=== PATIENT | male | born 1965 | race Caucasian/White ===

== ENCOUNTER 2019-09-01 22:20 | Inpatient (IN) | payer MEDICAID ==
[~2019-09-01] VITALS: Ht 182.9 cm; Wt 123.4 kg
[2019-09-01 23:33] LABS: Basophils # (auto) 0 10 ^3/uL (0-0.2); Basophils % (auto) 0.2 % (0.0-2.0); Eosinophils # (auto) 0 10 ^3/uL (0-0.8); Hematocrit 57.5 % (41.0-53.0); Hemoglobin 18.2 g/dL (13.5-17.5); Lymphocytes # (auto) 1.1 10 ^3/uL (0.4-5.4); Lymphocytes % (auto) 5.8 % (10.0-50.0); Mean Corpuscular Hemoglobin 30.8 pg (28.0-32.0); Mean Corpuscular Hgb Conc. 31.7 g/dL (32.0-36.0); Mean Corpuscular Volume 97.1 fL (80.0-100.0); Monocytes # (auto) 1.1 10 ^3/uL (0-1.3); Monocytes % (auto) 6.2 % (0.0-12.0); Neutrophils # (auto) 15.8 10 ^3/uL (1.6-8.6); Neutrophils % (auto) 87.8 % (37.0-80.0); Platelet Count (auto) 311 10^3/uL (140-450); Red Blood Cells 5.92 10^6/uL (4.5-5.90)
[2019-09-01 23:51] LABS: Blood Urea Nitrogen 23 mg/dL (7-18); Calcium 8.2 mg/dL (8.5-10.1); Chloride 99 mmol/L (98-107); Glucose 252 mg/dL (74-106); Potassium 4.5 mmol/L (3.5-5.1); Sodium 125 mmol/L (136-145)
[2019-09-01 23:53] LABS: Alanine Aminotransferase 56 U/L (16-61); Aspartate Aminotransferase 24 U/L (15-37); GFR African American 70 mL/min; GFR Non-African American 58 mL/min
[2019-09-01 23:54] LABS: BUN/Creatinine Ratio 16.9
[2019-09-01 23:55] LABS: Alkaline Phosphatase 120 U/L (45-117); Bilirubin, Total 0.7 mg/dL (0.2-1.0)
[2019-09-02 00:02] LABS: Anion Gap 22 (5-15); Carbon Dioxide 4 mmol/L (21-32)
[2019-09-02] MEDS ORDERED: SODIUM BICARBONATE 8.4 % INJ 50ML VIAL IV ONE ×3 (02:15→07:00)
[2019-09-02] MEDS ORDERED: SODIUM CHLORIDE 0.9% 2,000 ML IV ONE (02:15)
[2019-09-02 02:55] LABS: Urine Amorphous Crystal FEW /hpf (None Seen); Urine Bacteria FEW /hpf (None Seen); Urine Blood 2+ /uL (Negative); Urine Hyaline Cast MANY /lpf (0 - 2); Urine Specific Gravity 1.021 (1.001-1.035); Urine WBC <1 /hpf (0 - 3)
[2019-09-02] MEDS ORDERED: SODIUM BICARBONATE 50ML VIAL 50 ML in SOD CHL 0.45% 1,000 ML IV ONE (03:15)
[2019-09-02] MEDS ORDERED: SODIUM BICARBONATE 8.4% INJ 50ML SYRINGE ONE (03:37)
[2019-09-02 06:50] LABS: Albumin 3.4 g/dL (3.4-5.0); Calcium 7.3 mg/dL (8.5-10.1)
[2019-09-02 06:53] LABS: BUN/Creatinine Ratio 20.6; Bilirubin, Total 0.7 mg/dL (0.2-1.0); Total Protein 7.3 g/dL (6.4-8.2)
[2019-09-02] MEDS ORDERED: NITROGLYCERIN 0.4 MG SL TAB SL PRN (07:00)
[2019-09-02] MEDS ORDERED: SODIUM BICARBONATE 50ML VIAL 50 ML in SOD CHL 0.45% 1,000 ML IV SCH (07:00)
[2019-09-02] MEDS ORDERED: DEXTROSE (50%) 50ML SYRG IV PRN (07:00)
[2019-09-02] MEDS ORDERED: MORPHINE SULF INJ 2 MG/ML SYRINGE 1ML IV PRN (07:00)
[2019-09-02] MEDS ORDERED: SODIUM CHLORIDE 0.9% 500 ML IV ONE (07:00)
[2019-09-02] MEDS: ACCU-CHEK COMFORT CURVE STRIP VI SCH ×4 (08:00→20:00)
--- NOTE | 2019-09-02 08:00 | NUR ---
Admit to [facility] admitted to [facility] via merissa on reference and instruction librarian, and on room air after receiving SBAR from BAUTISTA Pink. Patient transferred to bed, connected to unit monitoring, and weighed by bed scale. Patient oriented to MOSHE ATKINS, primary RN, unit, room, bed, and unit policies regarding patient care and visiting hours. Patient with #18 Lt EJ with NaBicarb infusing at 50ml/hr. Bed in lowest position, rails x2 up and call light within reach. All questions and concerns addressed, patient verbalized understanding.
[2019-09-02 08:11] LABS: Magnesium 2.3 mg/dL (1.6-2.6); Phosphorus 2.1 mg/dL (2.5-4.90)
[2019-09-02] MEDS: InsuLIN REG 1unit/0.01ml Soln (100units/ml) SC SCH ×4 (08:30→20:00)
[2019-09-02 09:00] VITALS: BP 118/36
[2019-09-02] MEDS ORDERED: SODIUM PHOSPHATES 24 MEQ in SODIUM CHL 0.9% 100 ML IV ONE ×3 (10:45→17:30)
--- NOTE | 2019-09-02 11:40 | NUR ---
Dr Goldstein at bedside to see patient. Orders received.
[2019-09-02 11:43] LABS: Cholesterol 140 mg/dL (< 200); HDL Cholesterol 30 mg/dL (40-59); LDL Cholesterol 83 mg/dL (< 100); Triglycerides 158 mg/dL (< 150)
[2019-09-02 11:45] VITALS: BP 110/39
[2019-09-02] MEDS: SODIUM BICARBONATE 50ML VIAL 50 ML in SOD CHL 0.45% 1,000 ML IV SCH ×3 (11:47→23:05)
[2019-09-02 13:50] LABS: BUN/Creatinine Ratio 20.5; Potassium 3.6 mmol/L (3.5-5.1)
--- NOTE | 2019-09-02 14:30 | NUR ---
Dr Conde at bedside to see patient.
[2019-09-02 15:45] VITALS: BP 98/44
--- NOTE | 2019-09-02 16:00 | NUR ---
Midline Placement: Patient educated on need for midline placement. All risks and benefits explained and all questions and concerns addresses prior to procedure. 18g/10cm midline inserted via R BASILIC vein using Ultrasound. Sterile technique utilized. Blood return obtained from lumen and flushed easily with NS using proper technique. Midline secured with saline lock; biodisc and occlusive dressing applied. Primary RN notified. Midline lot # [id number].
--- NOTE | 2019-09-02 16:18 | NUR ---
PICC RN at bedside. #18 midline placed to right upper arm.
--- NOTE | 2019-09-02 17:00 | NUR ---
Found patient lying in bed with soiled jeans that smelled like urine. Instructed patient to remove soiled clothes and patient refused stating he just spilled water on himself. With assistance from Sushant, CCT patient changed gown and partial linen change. IV from Lt EJ discontinued after dressing found off and line hanging loose.
[2019-09-02] MEDS ORDERED: ASPI-231 PO (17:33)
[2019-09-02] MEDS ORDERED: LISI-275 PO (17:33)
[2019-09-02] MEDS ORDERED: METF-370 PO (17:33)
[2019-09-02] MEDS ORDERED: ATO40T PO (17:33)
--- NOTE | 2019-09-02 19:18 | NUR ---
CLOSING SHIFT NOTE: Patient resting in bed, no complaints of pain. Patient remains A&Ox4. Patient with right upper midline running IVF of 0.45NS + Bicarb at 150ml/hr. Patient to continue with accu checks q4hr. Report given to Aneta RAMIREZ RN.
[2019-09-02 20:00] VITALS: BP 130/58
--- NOTE | 2019-09-02 23:13 | NUR ---
Pt states pain to his lower back and states feels like a truck ran him over. States he takes 2 Codeine when this happens at home but only in a "rare blue almodovar." Pagejackelyn CHEATHAM.
[2019-09-02] MEDS ORDERED: ACET30TA15 PO (23:21)
--- NOTE | 2019-09-02 23:50 | NUR ---
repaged for orders for back pain.
--- NOTE | 2019-09-02 23:52 | NUR ---
One time dose of 2 Codeine and Restoril ordered. Will continue to monitor.
[2019-09-03] VITALS: BP 106/45
[2019-09-03] MEDS ORDERED: TEMAZEPAM 15 MG CAP PO PRN
[2019-09-03] MEDS ORDERED: ACETAMINOPHEN/CODEINE#3 (300/30mg) TAB PO ONE
[2019-09-03] MEDS: ACCU-CHEK COMFORT CURVE STRIP VI SCH ×4 (00:09→11:46)
[2019-09-03] MEDS: ONDANSETRON HCL 4 MG/2 ML VIAL IV PRN ×3 (00:10→05:40)
[2019-09-03 01:24] LABS: BUN/Creatinine Ratio 18.1; Calcium 6.7 mg/dL (8.5-10.1)
[2019-09-03 01:26] LABS: Potassium 2.8 mmol/L (3.5-5.1)
--- NOTE | 2019-09-03 01:35 | NUR ---
Reported to Dr. Saab K+ 2.8, CO2 9 which has improved from 6. Order K+ 40meq IV times 1 and redraw labs in AM. Will continue to monitor.
[2019-09-03 04:00] VITALS: BP 124/59
[2019-09-03] MEDS: InsuLIN REG 1unit/0.01ml Soln (100units/ml) SC SCH ×3 (04:00→09:00)
[2019-09-03] MEDS: POTASSIUM CHL 20MEQ/100ML 100 ML IV SCH ×2 (04:17→05:39)
[2019-09-03] MEDS: SODIUM BICARBONATE 50ML VIAL 50 ML in SOD CHL 0.45% 1,000 ML IV SCH (05:39)
[2019-09-03 06:27] LABS: Alcohol, Urine < 3.0 mg/dL (0-5); Amphetamine Screen, Urine NEGATIVE (NEGATIVE); Barbiturate Scree,Urine NEGATIVE (NEGATIVE); Benzodiazephine Screen, Urine NEGATIVE (NEGATIVE); Cannabinoid Screen, Urine NEGATIVE (NEGATIVE); Cocaine Screen, Urine NEGATIVE (NEGATIVE); Opiate Scree,Urine POSITIVE (NEGATIVE); Phencyclidine Screen, Urine NEGATIVE (NEGATIVE)
[2019-09-03 06:29] LABS: Creatinine, Urine 38 mg/dL (30.0-125.0); Sodium Urine 32 mmol/L (40-220)
--- NOTE | 2019-09-03 07:58 | NUR ---
Pt remains stable this shift. States abd ache this morning, may be due to Krider infusing. Pt has already have Zofran. Endorsed lab draws to AM shift due to Krider still infusing. Report given to Aneta Spencer RN, care endorsed.
[2019-09-03 08:00] VITALS: BP 107/55
[2019-09-03 09:43] LABS: Basophils # (auto) 0 10 ^3/uL (0-0.2); Basophils % (auto) 0.6 % (0.0-2.0); Eosinophils # (auto) 0 10 ^3/uL (0-0.8); Eosinophils % (auto) 0.2 % (0.0-7.0); Hematocrit 37.5 % (41.0-53.0); Hemoglobin 12.9 g/dL (13.5-17.5); Lymphocytes % (auto) 12.3 % (10.0-50.0); Mean Corpuscular Hemoglobin 31.6 pg (28.0-32.0); Mean Corpuscular Hgb Conc. 34.4 g/dL (32.0-36.0); Mean Corpuscular Volume 91.9 fL (80.0-100.0); Monocytes # (auto) 0.8 10 ^3/uL (0-1.3); Monocytes % (auto) 10.8 % (0.0-12.0); Neutrophils # (auto) 5.9 10 ^3/uL (1.6-8.6); Neutrophils % (auto) 76.1 % (37.0-80.0); Platelet Count (auto) 152 10^3/uL (140-450); Red Blood Cells 4.09 10^6/uL (4.5-5.90); Red Cell Distribution Width 13.6 % (11.8-14.3); White Blood Cell 7.8 10^3/uL (4.4-10.8)
[2019-09-03 09:56] LABS: Albumin 2.5 g/dL (3.4-5.0); Calcium 7.5 mg/dL (8.5-10.1); Potassium 3.2 mmol/L (3.5-5.1)
[2019-09-03 09:59] LABS: BUN/Creatinine Ratio 14.3; Bilirubin, Direct 0.3 mg/dL (0-0.2); Bilirubin, Total 0.7 mg/dL (0.2-1.0); Total Protein 5.3 g/dL (6.4-8.2)
[2019-09-03 12:00] VITALS: BP 100/52
[2019-09-03] MEDS ORDERED: InsuLIN R (HUMAN) 100 UNITS in SODIUM CHL 0.9% 99 ML IV SCH (12:35)
--- NOTE | 2019-09-03 12:40 | NUR ---
DR MAHAN AT BEDSIDE DISCUSSED PLAN OF CARE WITH PATIENT NEW ORDERS RECEIVED
[2019-09-03] MEDS ORDERED: D5W/SOD CHL 0.45%/KCL 40MEQ 1,000 ML IV SCH (12:45)
[2019-09-03] MEDS ORDERED: LACTATED RINGER'S 2,000 ML IV ONE (12:45)
--- NOTE | 2019-09-03 13:05 | NUR ---
PAGED DR SMITH- PATIENT WANTS TO GO AMA AWAITING RETURN CALL
--- NOTE | 2019-09-03 13:23 | NUR ---
PAGED DR SMITH 2ND TIME- PATIENT INSISTING ON LEAVING AMA NOW PATIENT VERBALIZED UNDERSTANDING RISKS HE IS TAKING LEAVING AGAINST MEDICAL ADVICE, AT COULD OCCUR AND PATIENT STILL VERBALIZES HE WISHES TO LEAVE
[2019-09-03] MEDS ORDERED: ACCU-CHEK COMFORT CURVE STRIP VI SCH (13:30)
--- NOTE | 2019-09-03 13:34 | NUR ---
IV removal- PATIENT GOING AMA IV DC'd with clean sterile technique, catheter fully intact. Pressure dressing applied to site. Patient tolerated well.
--- NOTE | 2019-09-03 13:52 | NUR ---
PATIENT LEFT UNIT AMA.
[2019-09-03] MEDS ORDERED: ENOXAPARIN SOD 100 MG/1 ML SYRINGE SC SCH (22:00)
[2019-09-04] MEDS ORDERED: cefTRIAXone 1GM/50ML D5W 50 ML IV SCH (09:00)
[2019-09-04] MEDS ORDERED: PANTOPRAZOLE 40 MG/10 ML VIAL INJ IV SCH (10:00)
--- NOTE | 2019-09-05 08:26 | NUR ---
Agricultural Equipment Test Engineer weekend Did not received a page from nurse regarding social service consult for patient regarding patient is unable to get supplies for his sugar level.
== END 2019-09-03 13:30 | disposition left against medical advice (07) | DRG 420 ==
LOC: EDBD 22:20 → ER 22:27 → OVERFLOW 22:28 → DOU IN ICU 09-02 07:59
PROVIDERS: ADMIT Nurse Practitioner; ATTEND Internal Medicine
DX: E11.10 Type 2 diabetes mellitus with ketoacidosis without coma (principal); N17.0 Acute kidney failure with tubular necrosis; G93.41 Metabolic encephalopathy; E44.0 Moderate protein-calorie malnutrition; E87.1 Hypo-osmolality and hyponatremia; E11.21 Type 2 diabetes mellitus with diabetic nephropathy; E87.6 Hypokalemia; F10.10 Alcohol abuse, uncomplicated; E83.39 Other disorders of phosphorus metabolism; F11.10 Opioid abuse, uncomplicated; I10 Essential (primary) hypertension; N39.0 Urinary tract infection, site not specified; Z53.29 Procedure and treatment not carried out because of patient's decision for other reasons; F17.200 Nicotine dependence, unspecified, uncomplicated; D72.829 Elevated white blood cell count, unspecified; Z71.6 Tobacco abuse counseling; Z91.19 Patient's noncompliance with other medical treatment and regimen; Z80.0 Family history of malignant neoplasm of digestive organs; Z68.36 Body mass index [BMI] 36.0-36.9, adult
CPT/HCPCS: 36415; 36600; 70450; 71045; 72125; 80048; 80053; 80061; 80076; 80307; 81001; 82010; 82570; 82805; 82962; 83036; 83735; 83880; 83930; 84100; 84300; 84443; 84484; 85025; 93005; 96361; 96374; 96376; 99291; G0378; J1815; J2405; J3480

== ENCOUNTER → 2019-09-03 | Emergency (ER) | payer MEDICAID ==
[~2019-09-03] VITALS: Ht 182.9 cm; Wt 99.8 kg
[~2019-09-03] MED LIST: ACET30TA15 PO; ACETAMINOPHEN 325 MG TAB PO ONE; ASPI-231 PO; ATO40T PO; LISI-275 PO; METF-370 PO; POTASSIUM CHL 20 Meq TABLET PO ONE
[2019-09-03 18:45] LABS: Basophils # (auto) 0 10 ^3/uL (0-0.2); Basophils % (auto) 0.5 % (0.0-2.0); Eosinophils # (auto) 0 10 ^3/uL (0-0.8); Eosinophils % (auto) 0.2 % (0.0-7.0); Hematocrit 41.2 % (41.0-53.0); Hemoglobin 14.5 g/dL (13.5-17.5); Lymphocytes # (auto) 1.2 10 ^3/uL (0.4-5.4); Lymphocytes % (auto) 13.1 % (10.0-50.0); Mean Corpuscular Hgb Conc. 35.2 g/dL (32.0-36.0); Monocytes # (auto) 0.9 10 ^3/uL (0-1.3); Monocytes % (auto) 9.6 % (0.0-12.0); Neutrophils # (auto) 6.9 10 ^3/uL (1.6-8.6); Neutrophils % (auto) 76.6 % (37.0-80.0); Platelet Count (auto) 177 10^3/uL (140-450); Red Blood Cells 4.53 10^6/uL (4.5-5.90)
[2019-09-03 19:07] LABS: Albumin 3.1 g/dL (3.4-5.0); Calcium 8.1 mg/dL (8.5-10.1)
[2019-09-03 19:11] LABS: BUN/Creatinine Ratio 14.4; Bilirubin, Total 0.8 mg/dL (0.2-1.0); Total Protein 6.3 g/dL (6.4-8.2)
[2019-09-03 21:33] VITALS: BP 111/61
== END | disposition home or self-care (01) ==
LOC: ER 16:55
DX: R42 Dizziness and giddiness (principal); E87.6 Hypokalemia; E78.5 Hyperlipidemia, unspecified; I10 Essential (primary) hypertension; E11.9 Type 2 diabetes mellitus without complications; Z90.49 Acquired absence of other specified parts of digestive tract
CPT/HCPCS: 36415; 70450; 80053; 83735; 84484; 85025; 93005

== ENCOUNTER 2025-04-12 00:48 | Inpatient (IN) | payer MEDICAID ==
[~2025-04-12] VITALS: Ht 180.3 cm; Wt 117.0 kg
[~2025-04-12 00:48] MED LIST changes: -ACETAMINOPHEN 325 MG TAB PO ONE; -ASPI-231 PO; +ASPI1TAB20 PO; -ATO40T PO; +ATOR-507 PO; -POTASSIUM CHL 20 Meq TABLET PO ONE
[2025-04-12] MEDS: KETOROLAC TROMETH 30 MG/ML 1ML VIAL IM ONE (02:15)
[2025-04-12] MEDS: ONDANSETRON ODT 4 MG TAB PO ONE (02:16)
[2025-04-12] MEDS: ACETAMINOPHEN 325 MG TAB PO ONE (02:16)
[2025-04-12 02:46] LABS: Anion Gap 25.00001 (5-15)
[2025-04-12 02:47] LABS: Hematocrit 49.7 % (41.0-53.0); Hemoglobin 16.8 g/dL (13.5-17.5); Mean Corpuscular Hemoglobin 30.9 pg (28.0-32.0); Mean Corpuscular Volume 91.2 fL (80.0-100.0); Nucleated Red Blood Cells % 0.0 %
[2025-04-12 02:52] LABS: BUN/Creatinine Ratio 18.1 (10.0-20.0); Blood Urea Nitrogen 17 mg/dL (9-23)
[2025-04-12 03:01] LABS: Calcium 7.3 mg/dL (8.7-10.4); Chloride 91 mmol/L (98-107); Glucose 322 mg/dL (74-106); Lipase 205 U/L (12-53); Sodium 126 mmol/L (136-145)
--- NOTE | 2025-04-12 03:01 | DVH ---
Exam: CT CT AB PEL WO CON-NO ORAL OR IV History: Abdominal pain, nausea, vomiting, constipation Comparison Study: None Technique: Multidetector spiral CT of the abdomen was performed from lung bases to pubic symphysis. Imaging was performed without IV contrast. Axial, coronal and sagittal multiplanar reformats were obtained from the axial data set by the technologist. Radiation Dose : 1. Abdomen/Pelvis: CTDIvol 22.99 mGy, DLP 1380.52 mGy*cm. Findings: Evaluation of solid organs is limited due to lack of intravenous contrast use. Lung Bases: No acute or significant lung base finding. Normal heart size. Coronary artery calcifications noted. No pleural or pericardial effusion. Liver: The liver is normal in size. No focal lesions. Gallbladder and Biliary Tree: Gallbladder has apparently been removed. No biliary ductal dilatation seen. Spleen: Unremarkable Pancreas: The pancreas is grossly normal in appearance. Adrenal Glands: Unremarkable Kidneys: Kidneys are grossly normal without calculi or hydronephrosis. Bladder: Grossly unremarkable for degree of distention. Bowel: The stomach is grossly normal in appearance. There is prominence the more proximal small bowel. There also appears to be fecalization of the more distal small bowel contents . No grossly dilated bowel seen. This may represent low- grade or developing obstruction related to the fecalization of small bowel contents. The appendix is not visualized; however, no secondary findings of acute appendicitis identified. Ascites: Absent Lymphadenopathy: No mesenteric, retroperitoneal or periportal lymphadenopathy. Abdominal Wall and Mesentery: Unremarkable. Vasculature: The visualized abdominal aorta is normal in size and caliber. Evaluation of abdominal and pelvic vessels is limited due to lack of intravenous contrast. Pelvic Organs: Bladder appears somewhat distended. Musculoskeletal: No aggressive focal bony lesions, acute fractures or dislocation. Degenerative changes are seen of the lumbar spine IMPRESSION: 1. There is prominence the more proximal small bowel. There also appears to be fecalization of the more distal small bowel contents . No grossly dilated bowel seen. This may represent low-grade or developing obstruction related to the fecalization of small bowel contents. Follow-up is needed. Radiation optimization: All CT scans at this facility use at least one of these dose optimization techniques: automated exposure control mA and/or kV adjustment per patient size (includes targeted exams where dose is matched to clinical indication) or iterative reconstruction.
[2025-04-12 03:02] LABS: Potassium 2.2 mmol/L (3.5-5.1)
[2025-04-12 03:03] LABS: Carbon Dioxide < 10 mmol/L (20-31)
--- NOTE | 2025-04-12 03:22 | ED.PDOC ---
History of Present Illness HPI Comments 60-year-old male who presents to the emergency department with nausea, vomiting, constipation, generalized abdominal pain ongoing since . He initially body and food poisoning. Patient has a history of pancreatitis in the past status post cholecystectomy. He also has history of diabetes, hypertension. REVIEW OF SYSTEMS: General: No fever, no chills, or fatigue HEENT: No sore throat, no earache, no congestion, no neck pain. Cardiac: No chest pain. No palpitations. Lungs: No shortness of breath, no cough. GI: Positive nausea, + vomiting, no diarrhea, + constipation, + abdominal pain : No dysuria, frequency, or urgency. No hematuria. Musculoskeletal: No joint pain , no joint swelling, no extremity edema. Skin: No rash, no itching. Neuro: No headache, no dizziness, no weakness (And as sated in HPI) PHYSICAL EXAM: General: Awake, alert and oriented. No acute distress. Skin: Skin in warm, dry and intact. Appropriate color for ethnicity. HEENT: The head is normocephalic and atraumatic. Conjunctivae are clear without exudates or hemorrhage. Sclera is non-icteric. Eyelids are normal in appearance without swelling or lesions. Oral mucosa is pink and moist Neck: The neck is supple with normal range of motion. No JVD. Cardiac: Heart rate and rhythm are normal. No murmurs, gallops, or rubs are auscultated. Respiratory: No signs of respiratory distress. Lung sounds are clear in all lobes bilaterally without rales, rhonchi, or wheezes. Abdominal: Abdomen is soft, generally tender, with distention, no guarding or rigidity. Diminished bowel sounds. Extremities: Upper and lower extremities are atraumatic in appearance without deformity or edema. Neurological: The patient is awake, alert and oriented to person, place, and time with normal speech. Speech is clear. There is no facial asymmetry. Psychiatric: Appropriate mood and affect. Good judgement and insight. Chief Complaint: Abdominal Pain Time Seen by MD: 01:05 Primary Care Provider: CELINE Allergies: Coded Allergies: NO KNOWN ALLERGIES (Unverified , 05/23/19) Home Meds Reported Medications Acetaminophen W/ Codeine (Codeine/Acetaminophen) 1 Tab Tab, 2 TAB PO, TAB 09/02/19 Aspirin (Aspir-81) 81 Mg Tab, 1 TAB PO DAILY, #30 TAB 5 Refills 09/02/19 Atorvastatin Calcium (Lipitor) 40 Mg Tab, 1 TAB PO QPM, #90 TAB 1 Refill 09/02/19 Lisinopril (Lisinopril) 5 Mg Tab, 5 MG PO DAILY for 30 Days, MG 09/02/19 Metformin Hydrochloride (Metformin Hcl) 500 Mg Tab, 500 MG PO IBID for 30 Days, MG 09/02/19 Mode of Arrival: EMS Past Medical History PAST MEDICAL HISTORY: DM, High Lipids, HTN Surgical History: Appendectomy, Cholecystectomy Family History Family History: Reviewed,noncontributory to illness, Family hx of heart radha Social History Smoker: Non-Smoker Alcohol: Occasionally Drugs: Denies Drug Use Lives In: Home Was a procedure done? Was a procedure done?: No Differential Dx Considerations may include: Differential diagnoses considered include: Abdominal aortic aneurysm, OK, esophageal rupture, intestinal obstruction, mesenteric ischemia, perforated viscus or solid organ rupture, CHF with hepatomegaly, pneumonia, abscess, appendicitis, biliary disease, diverticulitis, gastritis, gastroenteritis, hepatitis, hernia, inflammatory bowel disease, pancreatitis, peptic ulcer disease, urinary tract infection, ureteral colic, constipation, GERD, irritable syndrome, abdominal wall pain, nonspecific abdominal pain, herpes zoster, nephrolithiasis. X-Ray, Labs, Meds, VS Vital Signs Date Time Temp Pulse Resp B/P (MAP) Pulse Ox O2 Delivery O2 Flow Rate FiO2 04/12/25 03:36 Room Air* 0 21 04/12/25 02:16 97.8 04/12/25 02:05 97.8 91 18 125/71 (89) 97 97.8 04/12/25 00:57 98.0 94 18 134/74 97 98.0 Lab Test 04/12/25 02:03 Range/Units White Blood Count 10.2 4.4-10.8 10^3/uL Red Blood Count 5.45 4.5-5.90 10^6/uL Hemoglobin 16.8 13.5-17.5 g/dL Hematocrit 49.7 41.0-53.0 % Mean Corpuscular Volume 91.2 80.0-100.0 fL Mean Corpuscular Hemoglobin 30.9 28.0-32.0 pg Mean Corpuscular Hemoglobin Concent 33.8 32.0-36.0 g/dL Red Cell Distribution Width 13.8 11.8-14.3 % Platelet Count 283 140-450 10^3/uL Mean Platelet Volume 7.1 6.9-10.8 fL Neutrophils (%) (Auto) 66.0 37.0-80.0 % Lymphocytes (%) (Auto) 13.4 10.0-50.0 % Monocytes (%) (Auto) 20.4 H 0.0-12.0 % Eosinophils (%) (Auto) 0.1 0.0-7.0 % Basophils (%) (Auto) 0.1 0.0-2.0 % Neutrophils # (Auto) 6.7 1.6-8.6 10 ^3/uL Lymphocytes # (Auto) 1.4 0.4-5.4 10 ^3/uL Monocytes # (Auto) 2.1 H 0-1.3 10 ^3/uL Eosinophils # (Auto) 0 0-0.8 10 ^3/uL Basophils # (Auto) 0 0-0.2 10 ^3/uL Nucleated Red Blood Cells 0.0 % Sodium Level 126 L 136-145 mmol/L Potassium Level 2.2 *L 3.5-5.1 mmol/L Chloride Level 91 L 98-107 mmol/L Carbon Dioxide Level < 10 *L 20-31 mmol/L Anion Gap 25.57915 H 5-15 Blood Urea Nitrogen 17 9-23 mg/dL Creatinine 0.94 0.700-1.30 mg/dL Glomerular Filtration Rate Calc 92 >90 mL/min BUN/Creatinine Ratio 18.1 10.0-20.0 Serum Glucose 322 H 74-106 mg/dL Lactic Acid Level 1.2 0.4-2.0 mmol/L Calcium Level 7.3 L 8.7-10.4 mg/dL Lipase 205 H 12-53 U/L Current Medications Medications (Trade) Dose Ordered Sig/Betito Route Start Time Stop Time Status Last Admin Ketorolac Tromethamine (Toradol Injection) 30 mg ONCE ONCE IM 04/12/25 02:00 04/12/25 02:01 DC 04/12/25 02:15 Tramadol HCl (Ultram) 50 mg ONCE ONCE PO 04/12/25 02:00 04/12/25 02:01 DC 04/12/25 02:16 Acetaminophen (Tylenol Tablet) 650 mg ONCE ONCE PO 04/12/25 02:00 04/12/25 02:01 DC 04/12/25 02:16 Ondansetron HCl (Zofran Po) 4 mg ONCE ONCE PO 04/12/25 02:00 04/12/25 02:01 DC 04/12/25 02:16 Potassium Chloride 100 ml @ 50 mls/hr ONCE ONCE IV 04/12/25 04:00 04/12/25 05:59 04/12/25 04:12 Time of 1ST Reevaluation: 03:21 Reevaluation 1ST: Unchanged Patient Education/Counseling: Need For Follow Up Family Education/Counseling: No Family Present SEPSIS Sepsis Screen Date sepsis recognized/suspect: Apr 12, 2025 Time Sepsis recognized/suspect: 010 Recent Procedure: No On Antibiotic Therapy: No Respiratory Rate >20: No Heart Rate >90: Yes Temp<36 C (96.8 F) or >38.3 C: No SBP <90 or MAP <65 mmHG: No New Acute Mental Status Change: No Is the patient on CPAP, BIPAP,: No Physician Orders Urinalysis (04/12/25 01:53) Ct Ab Pel Wo Con-No Oral Or Iv (04/12/25 01:53) Potassium Chl 20meq/100ml (04/12/25 04:00) Vital Signs Date Time Temp Pulse Resp B/P (MAP) Pulse Ox O2 Delivery O2 Flow Rate FiO2 04/12/25 03:36 Room Air* 0 21 04/12/25 02:16 97.8 04/12/25 02:05 97.8 91 18 125/71 (89) 97 97.8 04/12/25 00:57 98.0 94 18 134/74 97 98.0 Laboratory Tests Test 04/12/25 02:03 Lactic Acid Level 1.2 mmol/L (0.4-2.0) White Blood Count 10.2 10^3/uL (4.4-10.8) Medications Medications Dose Ordered Sig/Betito Route Start Time Stop Time Status Last Admin Dose Admin Acetaminophen 650 mg ONCE ONCE PO 04/12/25 02:00 04/12/25 02:01 DC 04/12/25 02:16 Ketorolac Tromethamine 30 mg ONCE ONCE IM 04/12/25 02:00 04/12/25 02:01 DC 04/12/25 02:15 Ondansetron HCl 4 mg ONCE ONCE PO 04/12/25 02:00 04/12/25 02:01 DC 04/12/25 02:16 Potassium Chloride 100 ml @ 50 mls/hr ONCE ONCE IV 04/12/25 04:00 04/12/25 05:59 04/12/25 04:12 Tramadol HCl 50 mg ONCE ONCE PO 04/12/25 02:00 04/12/25 02:01 DC 04/12/25 02:16 Departure 1 Departure Time of Disposition: 03:22 Impression: Primary Impression: Small bowel obstruction Disposition: ADMITTED INPATIENT Condition: Stable Comments MDM: Patient is stabilized in the emergency department. Patient admitted to hospitalist service for further treatment, evaluation and monitoring. Critical Care Note Critical Care Time?: No Stability Stability form required: No Heart Score Heart Score: Heart Score Response (Comments) Value History N/A 0 EKG N/A 0 Age N/A 0 Risk Factors N/A 0 Troponin N/A 0 Total 0 MARINO PRICE MD Apr 12, 2025 03:22
[2025-04-12] MEDS: POTASSIUM CHL 20MEQ/100ML 100 ML IV ONE (04:12)
[2025-04-12] MEDS ORDERED: DEXTROSE (50%) 50ML SYRG IV PRN ×3 (04:15→21:00)
[2025-04-12] MEDS ORDERED: MORPHINE SULFATE INJ 2 MG/ml SYRG IV PRN (04:15)
[2025-04-12] MEDS ORDERED: NITROGLYCERIN 0.4 MG SL TAB SL PRN (04:15)
[2025-04-12] MEDS: CALCIUM GLUC 1,000mg/50ml-NS 50 ML IV ONE (04:37)
[2025-04-12 04:42] LABS: Base Excess -13.2 mmol/L (-2.0-3.0)
--- NOTE | 2025-04-12 04:54 | DVHHP2 ---
History of Present Illness Reason for Visit: Abdominal pain History of Present Illness 60-year-old male presents for evaluation of abdominal pain. Patient presents with complaints of a two week history of diffuse abdominal pain with associated nausea. No diarrhea or constipation. Denies fever or chills. Currently rates the pain at 5/10 intensity. Past Medical History Hypertension, dyslipidemia, diabetes mellitus Past Surgical History Cholecystectomy, appendectomy Family History Noncontributory Smoke: No ALCOHOL: occassional Drugs: None Lives: with Family Review of Systems Review of Systems Review of systems are currently negative otherwise addressed in HPI. Allergies: Coded Allergies: NO KNOWN ALLERGIES (Unverified , 05/23/19) Medications Current Medications Medications Dose Ordered Sig/Betito Route Start Time Stop Time Status Last Admin Dose Admin Ketorolac Tromethamine 15 mg Q6HPRN PRN IV 04/12/25 04:15 04/17/25 04:14 Pantoprazole Sodium 40 mg DAILY IV 04/12/25 10:00 Diagnostic Test (Pha) 1 strip IQ4HR 04/12/25 08:00 Insulin Human Regular IQ4HR SC 04/12/25 08:00 Dextrose 50 ml UD PRN IV 04/12/25 04:15 Ondansetron HCl 4 mg Q4HP PRN IV 04/12/25 04:15 Nitroglycerin 0.4 mg Q5MINP PRN SL 04/12/25 04:15 Morphine Sulfate 2 mg Q30M PRN IV 04/12/25 04:15 Exam Vital Signs Vital Signs Date Time Temp Pulse Resp B/P (MAP) Pulse Ox O2 Delivery O2 Flow Rate FiO2 04/12/25 04:00 89 04/12/25 03:36 Room Air* 0 21 04/12/25 02:16 97.8 04/12/25 02:05 18 125/71 (89) 97 Exam Gen: 60-year-old male in mild distress. Skin: Warm, dry, normal color and texture, no rash. HEENT: Normocephalic atraumatic, mucous membranes moist and pink. Neck: Cervical and supraclavicular nodes normal without enlargement, trachea is midline, thyroid gland is normal without masses. Pulmonary: Clear to auscultation and percussion bilaterally. Cardiac: Regular rate and rhythm. No murmur Abdomen: Soft, nontender, nondistended, bowel sounds present all 4 quadrants, no guarding, no rigidity, no organomegaly. Extremities: No cyanosis, clubbing, no edema Neuro: Cranial nerves II through XII grossly intact, normal affect and speech, no focal motor deficits. Labs/Xrays ORDERING PHYSICIAN: MARINO PRICE MD PROCEDURE(s): ABPL - CT AB PEL WO CON-NO ORAL OR IV REASON: Abdominal pain, nausea, vomiting, constipation ORDER NUMBER(s): [id number], ACCESSION NUMBER(s): [id number] Exam: CT CT AB PEL WO CON-NO ORAL OR IV History: Abdominal pain, nausea, vomiting, constipation Comparison Study: None Technique: Multidetector spiral CT of the abdomen was performed from lung bases to pubic symphysis. Imaging was performed without IV contrast. Axial, coronal and sagittal multiplanar reformats were obtained from the axial data set by the technologist. Radiation Dose : 1. Abdomen/Pelvis: CTDIvol 22.99 mGy, DLP 1380.52 mGy*cm. Findings: Evaluation of solid organs is limited due to lack of intravenous contrast use. Lung Bases: No acute or significant lung base finding. Normal heart size. Coronary artery calcifications noted. No pleural or pericardial effusion. Liver: The liver is normal in size. No focal lesions. Gallbladder and Biliary Tree: Gallbladder has apparently been removed. No biliary ductal dilatation seen. Spleen: Unremarkable Pancreas: The pancreas is grossly normal in appearance. Adrenal Glands: Unremarkable Kidneys: Kidneys are grossly normal without calculi or hydronephrosis. Bladder: Grossly unremarkable for degree of distention. Bowel: The stomach is grossly normal in appearance. There is prominence the more proximal small bowel. There also appears to be fecalization of the more distal small bowel contents . No grossly dilated bowel seen. This may represent low- grade or developing obstruction related to the fecalization of small bowel contents. The appendix is not visualized; however, no secondary findings of acute appendicitis identified. Ascites: Absent Lymphadenopathy: No mesenteric, retroperitoneal or periportal lymphadenopathy. Abdominal Wall and Mesentery: Unremarkable. Vasculature: The visualized abdominal aorta is normal in size and caliber. Evaluation of abdominal and pelvic vessels is limited due to lack of intravenous contrast. Pelvic Organs: Bladder appears somewhat distended. Musculoskeletal: No aggressive focal bony lesions, acute fractures or dislocation. Degenerative changes are seen of the lumbar spine IMPRESSION: 1. There is prominence the more proximal small bowel. There also appears to be fecalization of the more distal small bowel contents . No grossly dilated bowel seen. This may represent low-grade or developing obstruction related to the fecalization of small bowel contents. Follow-up is needed. Radiation optimization: All CT scans at this facility use at least one of these dose optimization techniques: automated exposure control mA and/or kV adjustment per patient size (includes targeted exams where dose is matched to clinical indication) or iterative reconstruction. Labs Test 04/12/25 04:35 04/12/25 02:03 Range/Units Blood Gas Specimen Type Arterial Blood Gas Sample Site Left radial Blood Gas Patient Temperature 37.0 Arterial Blood Date Drawn [id number] Arterial Blood pH 7.370 7.350-7.450 Arterial Blood Partial Pressure CO2 15.4 *L 35.0-48.0 mmHg Arterial Blood Partial Pressure O2 102.2 83.0-108.0 mmHg Arterial Blood HCO3 8.7 L 21.0-28.0 mmol/L Arterial Blood Oxygen Saturation 96.3 94.0-98.0 % Arterial Blood Base Excess -13.2 L -2.0-3.0 mmol/L Arterial Blood Oxyhemoglobin 95.8 94.0-98.0 % Arterial Blood Carboxyhemoglobin 0.5 0.5-1.5 % Arterial Blood Methemoglobin 0.0 0.0-1.5 % Jan Test Modified Blood Gas Total Hemoglobin 15.80 13.5-17.5 g/dL Blood Gas Modality Room air FiO2 % 21.0 Blood Gas Critical Value Read Back Yes Blood Gas Notified Whom Md jacinto price Blood Gas Notified Time [id number] Blood Gas Notified By Rt mckay irvin White Blood Count 10.2 4.4-10.8 10^3/uL Red Blood Count 5.45 4.5-5.90 10^6/uL Hemoglobin 16.8 13.5-17.5 g/dL Hematocrit 49.7 41.0-53.0 % Mean Corpuscular Volume 91.2 80.0-100.0 fL Mean Corpuscular Hemoglobin 30.9 28.0-32.0 pg Mean Corpuscular Hemoglobin Concent 33.8 32.0-36.0 g/dL Red Cell Distribution Width 13.8 11.8-14.3 % Platelet Count 283 140-450 10^3/uL Mean Platelet Volume 7.1 6.9-10.8 fL Neutrophils (%) (Auto) 66.0 37.0-80.0 % Lymphocytes (%) (Auto) 13.4 10.0-50.0 % Monocytes (%) (Auto) 20.4 H 0.0-12.0 % Eosinophils (%) (Auto) 0.1 0.0-7.0 % Basophils (%) (Auto) 0.1 0.0-2.0 % Neutrophils # (Auto) 6.7 1.6-8.6 10 ^3/uL Lymphocytes # (Auto) 1.4 0.4-5.4 10 ^3/uL Monocytes # (Auto) 2.1 H 0-1.3 10 ^3/uL Eosinophils # (Auto) 0 0-0.8 10 ^3/uL Basophils # (Auto) 0 0-0.2 10 ^3/uL Nucleated Red Blood Cells 0.0 % Sodium Level 126 L 136-145 mmol/L Potassium Level 2.2 *L 3.5-5.1 mmol/L Chloride Level 91 L 98-107 mmol/L Carbon Dioxide Level < 10 *L 20-31 mmol/L Anion Gap 25.39680 H 5-15 Blood Urea Nitrogen 17 9-23 mg/dL Creatinine 0.94 0.700-1.30 mg/dL Glomerular Filtration Rate Calc 92 >90 mL/min BUN/Creatinine Ratio 18.1 10.0-20.0 Serum Glucose 322 H 74-106 mg/dL Lactic Acid Level 1.2 0.4-2.0 mmol/L Calcium Level 7.3 L 8.7-10.4 mg/dL Lipase 205 H 12-53 U/L SEPSIS Sepsis Screen Date sepsis recognized/suspect: Apr 12, 2025 Time Sepsis recognized/suspect: 0100 Recent Procedure: No On Antibiotic Therapy: No Respiratory Rate >20: No Heart Rate >90: Yes Temp<36 C (96.8 F) or >38.3 C: No SBP <90 or MAP <65 mmHG: No New Acute Mental Status Change: No Is the patient on CPAP, BIPAP,: No Physician Orders Urinalysis (04/12/25 01:53) Ct Ab Pel Wo Con-No Oral Or Iv (04/12/25 01:53) Potassium Chl 20meq/100ml (04/12/25 04:00) Magnesium (04/12/25 04:17) Electrocardigram (04/12/25 04:17) Comprehensive Metabolic Panel (04/12/25 08:00) Sod Chl 0.9%/ Kcl 40meq (04/12/25 04:15) * Surgical Consult (04/12/25 ) Ketorolac Injection (Toradol Injection) (04/12/25 04:15) Abg W/ Co-Ox (04/12/25 04:12) Pantoprazole (Protonix) (04/12/25 10:00) Glucose Blood (Accu-Chek Comfort Curve T (04/12/25 08:00) Insulin R (Human) (Insulin R) (04/12/25 08:00) Dextrose 50% Syringe (04/12/25 04:15) Beta-Hydroxybutyrate (04/12/25 04:12) Admit (04/12/25 04:12) Ondansetron Hcl (Zofran) (04/12/25 04:15) Complete Blood Count (04/13/25 04:00) Comprehensive Metabolic Panel (04/13/25 04:00) Npo (Nothing By Mouth) Diet (04/12/25 Breakfast) Condition: Stable (04/12/25 04:12) Bedrest With Bathroom Privileg (04/12/25 04:12) Nitroglycerin Sublingual (Ntrostat Subli (04/12/25 04:15) Morphine Sulfate Injection (04/12/25 04:15) Stat Ekg For Chest Pain (04/12/25 04:12) Notify Of Changes From Base (04/12/25 04:12) Central Communications Specialist For 24 Hours (04/12/25 04:12) Emergency Dysrhythmia Protocol (04/12/25 04:12) Rhythm Strips Once Every Shift (04/12/25 04:12) Oxygen By Nasal Cannula (04/12/25 04:12) Vital Signs Date Time Temp Pulse Resp B/P (MAP) Pulse Ox O2 Delivery O2 Flow Rate FiO2 04/12/25 04:00 89 04/12/25 03:36 Room Air* 0 21 11/12/25 02:16 97.8 04/12/25 02:05 97.8 91 18 125/71 (89) 97 97.8 04/12/25 00:57 98.0 94 18 134/74 97 98.0 Laboratory Tests Test 04/12/25 02:03 Lactic Acid Level 1.2 mmol/L (0.4-2.0) White Blood Count 10.2 10^3/uL (4.4-10.8) Medications Medications Dose Ordered Sig/Betito Route Start Time Stop Time Status Last Admin Dose Admin Acetaminophen 650 mg ONCE ONCE PO 04/12/25 02:00 04/12/25 02:01 DC 04/12/25 02:16 650 MG Calcium Gluconate/ Sodium Chloride 50 ml @ 100 mls/hr ONCE ONCE IV 04/12/25 04:15 04/12/25 04:44 DC 04/12/25 04:37 100 MLS/HR Ketorolac Tromethamine 30 mg ONCE ONCE IM 04/12/25 02:00 04/12/25 02:01 DC 04/12/25 02:15 30 MG Ondansetron HCl 4 mg ONCE ONCE PO 04/12/25 02:00 04/12/25 02:01 DC 04/12/25 02:16 4 MG Potassium Chloride 100 ml @ 50 mls/hr ONCE ONCE IV 04/12/25 04:00 04/12/25 05:59 04/12/25 04:12 50 MLS/HR Tramadol HCl 50 mg ONCE ONCE PO 04/12/25 02:00 04/12/25 02:01 DC 04/12/25 02:16 50 MG Assessment/Plan Assessment/Plan Assessment ? Small-bowel obstruction Acute abdominal pain Diabetes mellitus ? Pancreatitis Hypokalemia Plan Admit the patient to telemetry to the hospitalist Surgical consultation NPO Maintenance IV fluids Replete electrolytes Pain management Continue treatment per orders. Plan discussed with: Patient My Orders Orders - YARA BRINK Procedure Category Date Status Time Comprehensive LAB 04/12/25 Logged Metabolic Panel 08:00 Sod Chl 0.9%/ Kcl PHA 04/12/25 In Process 40meq 04:15 * Surgical Consult CONS 04/12/25 Transmitted Ketorolac Injection PHA 04/12/25 In Process (Toradol Injection) 04:15 Abg W/ Co-Ox RT 04/12/25 Logged 04:12 Pantoprazole PHA 04/12/25 In Process (Protonix) 10:00 Glucose Blood PHA 04/12/25 In Process (Accu-Chek Comfort 08:00 Insulin R (Human) PHA 04/12/25 In Process (Insulin R) 08:00 Dextrose 50% Syringe PHA 04/12/25 In Process 04:15 Beta-Hydroxybutyrate LAB 04/12/25 In Process 04:12 Admit ADMIT 04/12/25 Transmitted 04:12 Ondansetron Hcl PHA 04/12/25 In Process (Zofran) 04:15 Complete Blood Count LAB 04/13/25 Verified 04:00 Comprehensive LAB 04/13/25 Verified Metabolic Panel 04:00 Npo (Nothing By DIET 04/12/25 Transmitted Mouth) Diet Breakfast Condition: Stable [facility] 04/12/25 In Process 04:12 Bedrest With Bathroom [facility] 04/12/25 In Process Privileg 04:12 Nitroglycerin [facility] 04/12/25 In Process Sublingual (Ntrostat 04:15 Morphine Sulfate [facility] 04/12/25 In Process Injection 04:15 Stat Ekg For Chest [facility] 04/12/25 In Process Pain 04:12 Notify Md Of Changes [facility] 04/12/25 In Process From Base 04:12 Central Communications Specialist For [facility] 04/12/25 In Process 24 Hours 04:12 Emergency Dysrhythmia [facility] 04/12/25 In Process Protocol 04:12 Rhythm Strips Once [facility] 04/12/25 In Process Every Shift 04:12 Oxygen By Nasal 04/12/25 Transmitted Cannula 04:12 Date of Service: Apr 12, 2025 Billing Provider: YARA BRINK Common Visit Codes: [id number] INP/OBS CARE (HIGH) YARA BRINK Apr 12, 2025 04:54
[2025-04-12] MEDS: SOD CHL 0.9%/ KCL 40MEQ 1,000 ML IV ONE (06:32)
[2025-04-12] MEDS: ACCU-CHEK COMFORT CURVE STRIP VI SCH ×3 (08:25→23:48)
[2025-04-12] MEDS: InsuLIN REG 1unit/0.01ml Soln (100units/ml) SC SCH ×2 (08:34→23:49)
[2025-04-12 08:48] LABS: Alanine Aminotransferase 18 U/L (7-40); Albumin 3.3 g/dL (3.2-4.8); Alkaline Phosphatase 71 U/L (46-116); Anion Gap 20 (5-15); BUN/Creatinine Ratio 19.3 (10.0-20.0); Blood Urea Nitrogen 22 mg/dL (9-23)
[2025-04-12 08:49] LABS: Chloride 93 mmol/L (98-107); Sodium 127 mmol/L (136-145)
[2025-04-12 08:50] LABS: Bilirubin, Total 0.8 mg/dL (0.2-1.0); Calcium 7.0 mg/dL (8.7-10.4); Carbon Dioxide 14 mmol/L (20-31); Glucose 397 mg/dL (74-106); Total Protein 5.7 g/dL (5.7-8.2)
[2025-04-12 08:51] LABS: Potassium 2.4 mmol/L (3.5-5.1)
[2025-04-12] MEDS: GASTROGRAFIN 120 ML SOL ONE (08:54)
[2025-04-12] MEDS ORDERED: INSULIN DRIP 100 UNIT/100ML 100 ML IV SCH (09:30)
[2025-04-12] MEDS ORDERED: SOD CHL 0.45% WITH 20MEQ KCL 1,000 ML IV SCH (09:30)
[2025-04-12] MEDS: POTASSIUM CHL 20MEQ/100ML 100 ML IV SCH ×2 (10:20→20:23)
[2025-04-12] MEDS: SODIUM CHLORIDE 0.9% 2,000 ML IV ONE (10:20)
[2025-04-12] MEDS: PANTOPRAZOLE 40 MG/10 ML VIAL INJ IV SCH (10:29)
[2025-04-12] MEDS: INSULIN LANTUS (GLARGINE) 1 /0.01ml (100units/ml) SC ONE (10:30)
[2025-04-12 11:38] VITALS: PULSE 85; RESP 16; O2SAT 97
[2025-04-12 12:24] LABS: Anion Gap 18 (5-15)
[2025-04-12 12:29] LABS: BUN/Creatinine Ratio 20.2 (10.0-20.0); Blood Urea Nitrogen 20 mg/dL (9-23)
[2025-04-12] MEDS: SODIUM CHLORIDE 0.9% 1,000 ML IV SCH (12:30)
[2025-04-12 12:31] LABS: Magnesium 2.7 mg/dL (1.6-2.6); Sodium 132 mmol/L (136-145)
[2025-04-12 12:32] LABS: Calcium 7.4 mg/dL (8.7-10.4); Carbon Dioxide 18 mmol/L (20-31); Chloride 96 mmol/L (98-107); Glucose 331 mg/dL (74-106)
[2025-04-12 12:33] LABS: Potassium 2.4 mmol/L (3.5-5.1)
--- NOTE | 2025-04-12 13:46 | DVHPN2 ---
Subjective Having some abdominal tenderness Reviewed: H&P Changes from previous H/P or p: No Changes Objective Vitals Vital Signs Date Time Temp Pulse Resp B/P (MAP) Pulse Ox O2 Delivery O2 Flow Rate FiO2 04/12/25 12:30 88 20 102/48 (66) 94 04/12/25 11:38 Room Air* 0 21 04/12/25 11:38 97.1 97.1 Intake/Output Intake and Output 04/12/25 07:00 Intake Total 100 ml Balance 100 ml Intake IV Total 100 ml General Appearance: Alert, Oriented X3 HEENT: Atraumatic Lungs: Clear to auscultation Cardiovascular: Regular rate, Normal S1, Normal S2 Medications Current Medications Medications Dose Ordered Sig/Betito Route Start Time Stop Time Status Last Admin Dose Admin Ketorolac Tromethamine 15 mg Q6HPRN PRN IV 04/12/25 04:15 04/17/25 04:14 Pantoprazole Sodium 40 mg DAILY IV 04/12/25 10:00 04/12/25 10:29 40 MG Ondansetron HCl 4 mg Q4HP PRN IV 04/12/25 04:15 Nitroglycerin 0.4 mg Q5MINP PRN SL 04/12/25 04:15 Morphine Sulfate 2 mg Q30M PRN IV 04/12/25 04:15 Potassium Chloride 100 ml @ 50 mls/hr Q2H IV 04/12/25 09:15 04/12/25 15:14 04/12/25 12:11 50 MLS/HR Insulin Human (Reg)/Sodium Chloride 100 ml @ 0.5 mls/hr Q24H IV 04/12/25 09:30 Dextrose 50 ml UD PRN IV 04/12/25 09:30 Diagnostic Test (Pha) 1 strip Q90MIN 04/12/25 10:30 04/12/25 12:11 1 STRIP Insulin Glargine 15 units DAILY SC 04/13/25 10:00 Sodium Chloride 1,000 ml @ 200 mls/hr Q5H IV 04/12/25 12:30 04/12/25 12:30 200 MLS/HR Laboratory Results Laboratory Tests 04/12/25 02:03 04/12/25 11:53 Chemistry Test 04/12/25 02:03 04/12/25 08:00 04/12/25 11:53 Calcium Level 7.3 mg/dL (8.7-10.4) L 7.0 mg/dL (8.7-10.4) L 7.4 mg/dL (8.7-10.4) L Magnesium Level 2.9 mg/dL (1.6-2.6) H 2.7 mg/dL (1.6-2.6) H Albumin 3.3 g/dL (3.2-4.8) Total Protein 5.7 g/dL (5.7-8.2) Phosphorus Level 1.0 mg/dL (2.4-5.1) L Lipid panel Test 04/12/25 02:03 Lipase 205 U/L (12-53) H LFT Test 04/12/25 08:00 Alanine Aminotransferase (ALT) 18 U/L (7-40) Alkaline Phosphatase 71 U/L (46-116) Aspartate Amino Transferase (AST) 19 U/L (13-40) Total Bilirubin 0.8 mg/dL (0.2-1.0) Blood Gas Results Test 04/12/25 04:35 Arterial Blood pH 7.370 (7.350-7.450) FiO2 % 21.0 Assessment/Plan Assessment/Plan ? Small-bowel obstruction Acute abdominal pain Diabetes mellitus ? Pancreatitis Hypokalemia DKA Start insulin protocol NPO IVF replace K Getting a SBT BMP q 4 hours Critical care time 79 minutes Plan discussed with: Patient My Orders Orders - TIO JUAREZ MD Procedure Category Date Status Time Sodium Chloride 0.9% PHA 04/12/25 In Process 12:30 Date of Service: Apr 12, 2025 Billing Provider: TIO JUAREZ MD Common Visit Codes: [id number] INP/OBS CARE(HIGH), [id number] CARE 30-74 MIN TIO JUAREZ MD Apr 12, 2025 13:46
--- NOTE | 2025-04-12 14:13 | DVH ---
Procedure: XY SMALL BOWEL SERIES-W GASTROGRA Reason for study/Clinical History: R/O OBSTRUCTION Comparison Study: None Technique: Single contrast small bowel series performed. FINDINGS/IMPRESSION: Initial shotblast operator view of the abdomen and pelvis appears demonstrates nonspecific bowel-gas pattern. Contrast is identified within the colon by 4.5 hours. This represents a delayed transit time without obstruction.
[2025-04-12 18:15] LABS: Anion Gap 18 (5-15); Chloride 100 mmol/L (98-107)
[2025-04-12 18:21] LABS: BUN/Creatinine Ratio 23.0 (10.0-20.0)
[2025-04-12 18:28] LABS: Blood Urea Nitrogen 23 mg/dL (9-23); Calcium 7.3 mg/dL (8.7-10.4); Carbon Dioxide 18 mmol/L (20-31); Glucose 324 mg/dL (74-106); Potassium 2.7 mmol/L (3.5-5.1); Sodium 136 mmol/L (136-145)
[2025-04-12 20:37] LABS: Chloride 99 mmol/L (98-107)
[2025-04-12 20:38] LABS: Anion Gap 17 (5-15)
[2025-04-12 20:43] LABS: BUN/Creatinine Ratio 14.1 (10.0-20.0); Blood Urea Nitrogen 14 mg/dL (9-23)
[2025-04-12 20:50] LABS: Calcium 7.5 mg/dL (8.7-10.4); Carbon Dioxide 19 mmol/L (20-31); Glucose 313 mg/dL (74-106); Potassium 2.6 mmol/L (3.5-5.1); Sodium 135 mmol/L (136-145)
[2025-04-12] MEDS: SODIUM CHLORIDE 0.9% 500 ML IV ONE (21:04)
[2025-04-13 00:53] LABS: Chloride 102 mmol/L (98-107); Sodium 138 mmol/L (136-145)
[2025-04-13 00:54] LABS: Anion Gap 18 (5-15)
[2025-04-13 00:59] LABS: BUN/Creatinine Ratio 14.8 (10.0-20.0); Blood Urea Nitrogen 12 mg/dL (9-23)
[2025-04-13 01:12] LABS: Calcium 7.3 mg/dL (8.7-10.4); Carbon Dioxide 18 mmol/L (20-31); Glucose 286 mg/dL (74-106); Potassium 2.8 mmol/L (3.5-5.1)
[2025-04-13 02:27] LABS: Urine Budding Yeast OCCASIONAL /hpf (None Seen); Urine Protein, UAD TRACE (Negative)
[2025-04-13] MEDS: ONDANSETRON HCL 4 MG/2 ML VIAL IV PRN (04:07)
[2025-04-13] MEDS: KETOROLAC TROMETH 30 MG/ML 1ML VIAL IV PRN (04:25)
[2025-04-13 05:48] LABS: Hematocrit 42.7 % (41.0-53.0); Hemoglobin 14.7 g/dL (13.5-17.5); Mean Corpuscular Hemoglobin 30.9 pg (28.0-32.0); Mean Corpuscular Volume 89.8 fL (80.0-100.0); Nucleated Red Blood Cells % 0.0 %
[2025-04-13 06:06] LABS: Alanine Aminotransferase 20 U/L (7-40); Alkaline Phosphatase 63 U/L (46-116); Anion Gap 17 (5-15); BUN/Creatinine Ratio 13.0 (10.0-20.0); Blood Urea Nitrogen 10 mg/dL (9-23); Chloride 104 mmol/L (98-107); Sodium 140 mmol/L (136-145)
[2025-04-13 06:07] LABS: Bilirubin, Total 1.0 mg/dL (0.2-1.0)
[2025-04-13 06:25] LABS: Albumin 3.0 g/dL (3.2-4.8); Calcium 7.4 mg/dL (8.7-10.4); Carbon Dioxide 19 mmol/L (20-31); Glucose 172 mg/dL (74-106); Total Protein 5.4 g/dL (5.7-8.2)
[2025-04-13 06:26] LABS: Potassium 2.5 mmol/L (3.5-5.1)
[2025-04-13] MEDS: MAGNESIUM SULFATE 1GM/100ML 100 ML IV ONE (06:50)
[2025-04-13] MEDS: POTASSIUM CHL 20MEQ/100ML 100 ML IV SCH (06:58)
[2025-04-13 07:37] VITALS: PULSE 86; RESP 17; O2SAT 99
[2025-04-13] MEDS: INSULIN LANTUS (GLARGINE) 1 /0.01ml (100units/ml) SC SCH (10:11)
[2025-04-13 11:30] LABS: Alanine Aminotransferase 19 U/L (7-40); Alkaline Phosphatase 61 U/L (46-116); Anion Gap 14 (5-15); BUN/Creatinine Ratio 21.9 (10.0-20.0); Blood Urea Nitrogen 16 mg/dL (9-23); Carbon Dioxide 21 mmol/L (20-31); Chloride 107 mmol/L (98-107); Sodium 142 mmol/L (136-145)
[2025-04-13 11:31] LABS: Bilirubin, Total 0.9 mg/dL (0.2-1.0)
[2025-04-13 11:34] LABS: Albumin 2.9 g/dL (3.2-4.8); Calcium 7.5 mg/dL (8.7-10.4); Glucose 205 mg/dL (74-106); Potassium 3.0 mmol/L (3.5-5.1); Total Protein 5.0 g/dL (5.7-8.2)
[2025-04-13 12:28] VITALS: PULSE 83
--- NOTE | 2025-04-13 12:54 | DVHPN2 ---
Subjective Having some abdominal tenderness Reviewed: H&P Changes from previous H/P or p: No Changes Objective Vitals Vital Signs Date Time Temp Pulse Resp B/P (MAP) Pulse Ox O2 Delivery O2 Flow Rate FiO2 04/13/25 12:00 83 04/13/25 11:30 97.1 15 125/65 (85) 96 97.1 04/13/25 07:37 Room Air* 0 21 Intake/Output Intake and Output 04/13/25 07:00 Intake Total 2500 ml Output Total 1000 ml Balance 1500 ml Intake IV Total 2500 ml Output Urine Total 1000 ml General Appearance: Alert, Oriented X3 HEENT: Atraumatic Lungs: Clear to auscultation Cardiovascular: Regular rate, Normal S1, Normal S2 Medications Current Medications Medications Dose Ordered Sig/Betito Route Start Time Stop Time Status Last Admin Dose Admin Ketorolac Tromethamine 15 mg Q6HPRN PRN IV 04/12/25 04:15 04/17/25 04:14 04/13/25 04:25 15 MG Pantoprazole Sodium 40 mg DAILY IV 04/12/25 10:00 04/13/25 10:10 40 MG Ondansetron HCl 4 mg Q4HP PRN IV 04/12/25 04:15 04/13/25 04:07 4 MG Nitroglycerin 0.4 mg Q5MINP PRN SL 04/12/25 04:15 Morphine Sulfate 2 mg Q30M PRN IV 04/12/25 04:15 Insulin Glargine 15 units DAILY SC 04/13/25 10:00 04/13/25 10:11 15 UNITS Sodium Chloride 1,000 ml @ 200 mls/hr Q5H IV 04/12/25 12:30 04/13/25 08:41 200 MLS/HR Diagnostic Test (Pha) 1 strip IQ4HR 04/13/25 00:00 04/13/25 12:03 1 STRIP Insulin Human Regular IQ4HR SC 04/13/25 00:00 04/13/25 12:06 3 UNITS Dextrose 50 ml UD PRN IV 04/12/25 21:00 Laboratory Results Laboratory Tests 04/13/25 05:00 04/13/25 10:44 Chemistry Test 04/12/25 17:10 04/12/25 20:02 04/13/25 00:20 04/13/25 05:00 Calcium Level 7.3 mg/dL (8.7-10.4) L 7.5 mg/dL (8.7-10.4) L 7.3 mg/dL (8.7-10.4) L 7.4 mg/dL (8.7-10.4) L Albumin 3.0 g/dL (3.2-4.8) L Total Protein 5.4 g/dL (5.7-8.2) L Test 04/13/25 10:44 Albumin 2.9 g/dL (3.2-4.8) L Calcium Level 7.5 mg/dL (8.7-10.4) L Total Protein 5.0 g/dL (5.7-8.2) L LFT Test 04/13/25 05:00 04/13/25 10:44 Alanine Aminotransferase (ALT) 20 U/L (7-40) 19 U/L (7-40) Alkaline Phosphatase 63 U/L (46-116) 61 U/L (46-116) Aspartate Amino Transferase (AST) 23 U/L (13-40) 21 U/L (13-40) Total Bilirubin 1.0 mg/dL (0.2-1.0) 0.9 mg/dL (0.2-1.0) Urinalysis Test 04/13/25 01:30 Urine Color Yellow (Yellow) Urine Clarity Clear (Clear) Urine pH 6.5 (5.0-9.0) Urine Specific [place] 1.022 (1.001-1.035) Urine Protein Trace (Negative) H Urine Ketones 4+ (Negative) H Urine Blood Negative /uL (Negative) Urine Nitrite Negative (Negative) Urine Bilirubin Negative (Negative) Urine Urobilinogen Normal mg/dL (Negative) Urine Leukocyte Esterase Negative /uL (Negative) Urine RBC 6 /hpf (0 - 3) Urine Microscopic WBC 2 /HPF (0-3) Urine Squamous Epithelial Cells Few /hpf (<5) Urine Bacteria None seen /hpf (None Seen) Urine Granular Casts Few /lpf (0) Urine Yeast (Budding) Occasional /hpf (None Urine Glucose 4+ mg/dL (Normal) H Assessment/Plan Assessment/Plan ? Small-bowel obstruction Acute abdominal pain Diabetes mellitus ? Pancreatitis Hypokalemia DKA replace K start diabetic diet long acting insulin daily bmp Plan discussed with: Patient My Orders Orders - TIO JUAREZ MD Procedure Category Date Status Time Communication Order ORDERS 04/12/25 Transmitted 11:45 Communication Order ORDERS 04/12/25 Transmitted 12:00 Communication Order ORDERS 04/12/25 Transmitted 14:32 Communication Order ORDERS 04/12/25 Transmitted 16:24 Npo Except Ice Chips ALAN 04/13/25 In Process 11:35 Npo (Nothing By DIET 04/13/25 Transmitted Mouth) Diet Lunch Date of Service: Apr 13, 2025 Billing Provider: TIO JUAREZ MD Common Visit Codes: [id number] INP/OBS CARE(HIGH) TIO JUAREZ MD Apr 13, 2025 12:54
[2025-04-13] MEDS ORDERED: SEMA1INJ2 SC (14:40)
--- NOTE | 2025-04-13 14:50 | DVHPN2 ---
Progress Note - Dictate Date Seen: Apr 13, 2025 Medical Necessity Reason Pt with a Central, PICC or Fol: No vital signs Vital Sign Date Time Temp Pulse Resp B/P (MAP) Pulse Ox O2 Delivery O2 Flow Rate FiO2 04/13/25 12:00 83 04/13/25 11:30 97.1 15 125/65 (85) 96 97.1 04/13/25 07:37 Room Air* 0 21 Total Intake and Output 04/12/25 04/12/25 04/13/25 15:00 23:00 07:00 Intake Total 200 ml 900 ml 1400 ml Output Total 1000 ml Balance -800 ml 900 ml 1400 ml medications Current Medications Medications Dose Ordered Sig/Betito Route Start Time Stop Time Status Last Admin Dose Admin Ketorolac Tromethamine 15 mg Q6HPRN PRN IV 04/12/25 04:15 04/17/25 04:14 04/13/25 04:25 15 MG Pantoprazole Sodium 40 mg DAILY IV 04/12/25 10:00 04/13/25 10:10 40 MG Ondansetron HCl 4 mg Q4HP PRN IV 04/12/25 04:15 04/13/25 04:07 4 MG Nitroglycerin 0.4 mg Q5MINP PRN SL 04/12/25 04:15 Morphine Sulfate 2 mg Q30M PRN IV 04/12/25 04:15 Insulin Glargine 15 units DAILY SC 04/13/25 10:00 04/13/25 10:11 15 UNITS Sodium Chloride 1,000 ml @ 200 mls/hr Q5H IV 04/12/25 12:30 04/13/25 08:41 200 MLS/HR Diagnostic Test (Pha) 1 strip IQ4HR 04/13/25 00:00 04/13/25 12:03 1 STRIP Insulin Human Regular IQ4HR SC 04/13/25 00:00 04/13/25 12:06 3 UNITS Dextrose 50 ml UD PRN IV 04/12/25 21:00 laboratory and microbiology Laboratory Tests 04/13/25 10:44 04/13/25 05:00 Test 04/13/25 10:44 Range/Units Serum Glucose 205 H 74-106 mg/dL Assessment/Plan 60-year-old male, who presented to rule out a small bowel obstruction. A small bowel series was performed which showed contrast within the colon at 4.5 hours,delayed small bowel transit time with no evidence of obstruction. The patient also reported having a large bowel movement. results discussed with Dr. Hooks Plan discussed with: DENA Barone NP Apr 13, 2025 14:50
[2025-04-13 15:31] LABS: Urine Ca Carbonate Crystal MOD /hpf (None Seen); Urine Protein, UAD TRACE (Negative)
[2025-04-13 16:45] VITALS: BP 118/40; PULSE 82; RESP 16; TEMP 97.9; O2SAT 99
[2025-04-13 20:00] VITALS: PULSE 80; RESP 18
[2025-04-13 21:00] VITALS: BP 96/42; PULSE 80; RESP 19; TEMP 96.7; O2SAT 97
[2025-04-14] VITALS (7 sets, daily range): BP systolic 92–146; BP diastolic 40–70; PULSE 71–95; RESP 17–19; TEMP 97.6–98; O2SAT 95–99
--- NOTE | 2025-04-14 10:13 | DVHPN2 ---
Progress Note Date Seen: Apr 14, 2025 Medical Necessity Reason Pt with a Central, PICC or Fol: No Objective vital signs Vital Sign Date Time Temp Pulse Resp B/P (MAP) Pulse Ox O2 Delivery O2 Flow Rate FiO2 04/14/25 08:44 97.8 77 18 95/47 (63) 97 97.8 04/14/25 07:42 Room Air* 0 21 Total Intake and Output 04/13/25 04/13/25 04/14/25 15:00 23:00 07:00 Intake Total 1200 ml 770 ml 150 ml Output Total 500 ml Balance 1200 ml 770 ml -350 ml medications Current Medications Medications Dose Ordered Sig/Betito Route Start Time Stop Time Status Last Admin Dose Admin Ketorolac Tromethamine 15 mg Q6HPRN PRN IV 04/12/25 04:15 04/17/25 04:14 04/13/25 04:25 15 MG Pantoprazole Sodium 40 mg DAILY IV 04/12/25 10:00 04/14/25 08:43 40 MG Ondansetron HCl 4 mg Q4HP PRN IV 04/12/25 04:15 04/13/25 04:07 4 MG Nitroglycerin 0.4 mg Q5MINP PRN SL 04/12/25 04:15 Morphine Sulfate 2 mg Q30M PRN IV 04/12/25 04:15 Insulin Glargine 15 units DAILY SC 04/13/25 10:00 04/14/25 08:43 15 UNITS Sodium Chloride 1,000 ml @ 200 mls/hr Q5H IV 04/12/25 12:30 04/13/25 08:41 200 MLS/HR Diagnostic Test (Pha) 1 strip IQ4HR 04/13/25 00:00 04/14/25 05:21 1 STRIP Insulin Human Regular IQ4HR SC 04/13/25 00:00 04/14/25 08:42 3 UNITS Dextrose 50 ml UD PRN IV 04/12/25 21:00 laboratory and microbiology Laboratory Tests 04/13/25 10:44 04/13/25 05:00 Test 04/13/25 10:44 Range/Units Serum Glucose 205 H 74-106 mg/dL Problem List/Assessment/Plan Problem List/Assessment/Plan 04/14/25partial small bowel obstruction,resolving, multiple bowel movements, no indication for surgical intervention, please recall if needed Plan discussed with: Patient DERRICK ESPINOZA MD Apr 14, 2025 10:13
--- NOTE | 2025-04-14 18:36 | DVHPN2 ---
Subjective Having some abdominal tenderness Reviewed: H&P Changes from previous H/P or p: No Changes Objective Vitals Vital Signs Date Time Temp Pulse Resp B/P (MAP) Pulse Ox O2 Delivery O2 Flow Rate FiO2 04/14/25 16:39 97.9 80 18 98/59 (72) 95 97.9 04/14/25 07:42 Room Air* 0 21 Intake/Output Intake and Output 04/14/25 05:00 Intake Total 2520 ml Output Total 500 ml Balance 2020 ml Intake Oral 920 ml IV Total 1600 ml Output Urine Total 500 ml # Voids 1 # Bowel Movements 6 General Appearance: Alert, Oriented X3 HEENT: Atraumatic Lungs: Clear to auscultation Cardiovascular: Regular rate, Normal S1, Normal S2 Medications Current Medications Medications Dose Ordered Sig/Betito Route Start Time Stop Time Status Last Admin Dose Admin Ketorolac Tromethamine 15 mg Q6HPRN PRN IV 04/12/25 04:15 04/17/25 04:14 04/13/25 04:25 15 MG Pantoprazole Sodium 40 mg DAILY IV 04/12/25 10:00 04/14/25 08:43 40 MG Ondansetron HCl 4 mg Q4HP PRN IV 04/12/25 04:15 04/13/25 04:07 4 MG Nitroglycerin 0.4 mg Q5MINP PRN SL 04/12/25 04:15 Morphine Sulfate 2 mg Q30M PRN IV 04/12/25 04:15 Insulin Glargine 15 units DAILY SC 04/13/25 10:00 04/14/25 08:43 15 UNITS Sodium Chloride 1,000 ml @ 200 mls/hr Q5H IV 04/12/25 12:30 04/13/25 08:41 200 MLS/HR Diagnostic Test (Pha) 1 strip IQ4HR 04/13/25 00:00 04/14/25 16:11 1 STRIP Insulin Human Regular IQ4HR SC 04/13/25 00:00 04/14/25 16:21 9 UNITS Dextrose 50 ml UD PRN IV 04/12/25 21:00 Laboratory Results Laboratory Tests 04/13/25 05:00 04/13/25 10:44 Urinalysis Test 04/13/25 01:30 04/13/25 15:03 Urine Granular Casts Few /lpf (0) Urine Yeast (Budding) Occasional /hpf (None Urine Color Yellow (Yellow) Urine Clarity Turbid (Clear) H Urine pH 6.5 (5.0-9.0) Urine Specific [place] 1.019 (1.001-1.035) Urine Protein Trace (Negative) H Urine Ketones 2+ (Negative) H Urine Blood Negative /uL (Negative) Urine Nitrite Negative (Negative) Urine Bilirubin Negative (Negative) Urine Urobilinogen 2 mg/dL (Negative) H Urine Leukocyte Esterase Negative /uL (Negative) Urine RBC 3 /hpf (0 - 3) Urine Microscopic WBC 2 /HPF (0-3) Urine Squamous Epithelial Cells None seen /hpf (<5) Urine Calcium Carbonate Crystals Mod /hpf (None Seen) Urine Bacteria None seen /hpf (None Seen) Urine Glucose 3+ mg/dL (Normal) H Microbiology Microbiology Date/Time Source Procedure Growth Status 04/13/25 13:20 Stool Clostridium difficile Toxin Assay - Final Complete Assessment/Plan Assessment/Plan ? Small-bowel obstruction Acute abdominal pain Diabetes mellitus ? Pancreatitis Hypokalemia DKA Diarrhea C diff replace K start diabetic diet long acting insulin daily bmp IV flagyl Plan discussed with: Patient My Orders Orders - TIO JUAREZ MD Procedure Category Date Status Time Pt Request For Service PT 04/14/25 Logged 12:47 Date of Service: Apr 14, 2025 Billing Provider: TIO JUAREZ MD Common Visit Codes: [id number] INP/OBS CARE(HIGH) TIO JUAREZ MD Apr 14, 2025 18:36
[2025-04-15 01:00] VITALS: BP 124/63; PULSE 88; RESP 18; TEMP 98.3; O2SAT 98
[2025-04-15 04:59] VITALS: BP 114/56; PULSE 89; RESP 20; TEMP 98.3; O2SAT 98
[2025-04-15 06:01] LABS: Hematocrit 38.3 % (41.0-53.0); Hemoglobin 13.4 g/dL (13.5-17.5); Mean Corpuscular Hemoglobin 31.2 pg (28.0-32.0); Mean Corpuscular Volume 89.2 fL (80.0-100.0); Nucleated Red Blood Cells % 0.1 %
[2025-04-15 06:12] LABS: Chloride 106 mmol/L (98-107)
[2025-04-15 06:13] LABS: Anion Gap 13 (5-15); Carbon Dioxide 27 mmol/L (20-31)
[2025-04-15 06:16] LABS: Calcium 8.0 mg/dL (8.7-10.4); Sodium 146 mmol/L (136-145)
[2025-04-15 06:17] LABS: Potassium 2.3 mmol/L (3.5-5.1)
[2025-04-15 06:19] LABS: BUN/Creatinine Ratio 9.6 (10.0-20.0)
[2025-04-15 06:35] LABS: Blood Urea Nitrogen 5 mg/dL (9-23); Glucose 133 mg/dL (74-106)
[2025-04-15 08:00] VITALS: PULSE 87; RESP 18; O2SAT 100
[2025-04-15 08:37] VITALS: BP 125/67; PULSE 87; RESP 18; TEMP 98.8; O2SAT 100
[2025-04-15] MEDS: POTASSIUM CHL 20 Meq TABLET PO ONE (10:15)
[2025-04-15] MEDS ORDERED: METR-344 PO (12:29)
[2025-04-15 12:36] VITALS: BP 127/64; PULSE 94; RESP 18; TEMP 98.2; O2SAT 98
--- NOTE | 2025-04-15 13:12 | DVHDS2 ---
Discharge Summary Date of Admission Apr 12, 2025 at 04:12 Date of Discharge: Apr 15, 2025 Labs/Diagnostic Data: Laboratory Results Test 04/15/25 11:54 04/15/25 05:00 04/13/25 15:03 04/13/25 10:44 POC Glucose 242 mg/dl (70-106) White Blood Count 7.6 10^3/uL (4.4-10.8) Red Blood Count 4.30 10^6/uL (4.5-5.90) Hemoglobin 13.4 g/dL (13.5-17.5) Hematocrit 38.3 % (41.0-53.0) Mean Corpuscular Volume 89.2 fL (80.0-100.0) Mean Corpuscular Hemoglobin 31.2 pg (28.0-32.0) Mean Corpuscular Hemoglobin Concent 35.0 g/dL (32.0-36.0) Red Cell Distribution Width 14.2 % (11.8-14.3) Platelet Count 226 10^3/uL (140-450) Mean Platelet Volume 6.9 fL (6.9-10.8) Neutrophils (%) (Auto) 61.1 % (37.0-80.0) Lymphocytes (%) (Auto) 22.9 % (10.0-50.0) Monocytes (%) (Auto) 13.2 % (0.0-12.0) Eosinophils (%) (Auto) 2.3 % (0.0-7.0) Basophils (%) (Auto) 0.5 % (0.0-2.0) Neutrophils # (Auto) 4.6 10 ^3/uL (1.6-8.6) Lymphocytes # (Auto) 1.7 10 ^3/uL (0.4-5.4) Monocytes # (Auto) 1.0 10 ^3/uL (0-1.3) Eosinophils # (Auto) 0.2 10 ^3/uL (0-0.8) Basophils # (Auto) 0 10 ^3/uL (0-0.2) Nucleated Red Blood Cells 0.1 % Sodium Level 146 mmol/L (136-145) Potassium Level 2.3 mmol/L (3.5-5.1) Chloride Level 106 mmol/L (98-107) Carbon Dioxide Level 27 mmol/L (20-31) Anion Gap 13 (5-15) Blood Urea Nitrogen 5 mg/dL (9-23) Creatinine 0.52 mg/dL (0.700-1.30) Glomerular Filtration Rate Calc 114 mL/min (>90) BUN/Creatinine Ratio 9.6 (10.0-20.0) Serum Glucose 133 mg/dL (74-106) Calcium Level 8.0 mg/dL (8.7-10.4) Urine Color Yellow (Yellow) Urine Clarity Turbid (Clear) Urine pH 6.5 (5.0-9.0) Urine Specific [place] 1.019 (1.001-1.035) Urine Protein Trace (Negative) Urine Ketones 2+ (Negative) Urine Blood Negative /uL (Negative) Urine Nitrite Negative (Negative) Urine Bilirubin Negative (Negative) Urine Urobilinogen 2 mg/dL (Negative) Urine Leukocyte Esterase Negative /uL (Negative) Urine RBC 3 /hpf (0 - 3) Urine Microscopic WBC 2 /HPF (0-3) Urine Squamous Epithelial Cells None seen /hpf (<5) Urine Calcium Carbonate Crystals Mod /hpf (None Seen) Urine Bacteria None seen /hpf (None Seen) Urine Glucose 3+ mg/dL (Normal) Total Bilirubin 0.9 mg/dL (0.2-1.0) Aspartate Amino Transferase (AST) 21 U/L (13-40) Alanine Aminotransferase (ALT) 19 U/L (7-40) Alkaline Phosphatase 61 U/L (46-116) Total Protein 5.0 g/dL (5.7-8.2) Albumin 2.9 g/dL (3.2-4.8) Test 04/13/25 01:30 04/12/25 11:53 04/12/25 08:00 04/12/25 04:35 Urine Granular Casts Few /lpf (0) Urine Yeast (Budding) Occasional /hpf (None Phosphorus Level 1.0 mg/dL (2.4-5.1) Magnesium Level 2.7 mg/dL (1.6-2.6) Serum Osmolality 290 mOsm/kg (278-298) Blood Gas Specimen Type Arterial Blood Gas Sample Site Left radial Blood Gas Patient Temperature 37.0 Arterial Blood Date Drawn [id number] Arterial Blood pH 7.370 (7.350-7.450) Arterial Blood Partial Pressure CO2 15.4 mmHg (35.0-48.0) Arterial Blood Partial Pressure O2 102.2 mmHg (83.0-108.0) Arterial Blood HCO3 8.7 mmol/L (21.0-28.0) Arterial Blood Oxygen Saturation 96.3 % (94.0-98.0) Arterial Blood Base Excess -13.2 mmol/L (-2.0-3.0) Arterial Blood Oxyhemoglobin 95.8 % (94.0-98.0) Arterial Blood Carboxyhemoglobin 0.5 % (0.5-1.5) Arterial Blood Methemoglobin 0.0 % (0.0-1.5) Jan Test Modified Blood Gas Total Hemoglobin 15.80 g/dL (13.5-17.5) Blood Gas Modality Room air FiO2 % 21.0 Blood Gas Critical Value Read Back Yes Blood Gas Notified Whom Md jacinto brewer Blood Gas Notified Time [id number] Blood Gas Notified By Rt mckay irvin Test 04/12/25 02:03 Lactic Acid Level 1.2 mmol/L (0.4-2.0) Lipase 205 U/L (12-53) Beta-Hydroxybutyric Acid > 4.500 mmol/L (< 0.4) Other Laboratory Tests 04/15/25 05:00 Brief Hx & Hospital Course: 60-year-old male presents for evaluation of abdominal pain. Patient presents with complaints of a two week history of diffuse abdominal pain with associated nausea. No diarrhea or constipation. Denies fever or chills. Currently rates the pain at 5/10 intensity. Had DKA and resolved Diarrhea improved and found to have c diff colitis Condition at Discharge: Good Final Diagnosis/Problems List DKA C diff colitis Discharge Disposition: Home Discharge Instruct/Medications Diet: Regular Activity: No Restrictions, As Tolerated Follow Up/Referral: PCP in 7 days Medications: oral flagyl Scheduled Aspirin (Aspir-81), 1 TAB PO DAILY, (Reported) Atorvastatin Calcium (Lipitor), 1 TAB PO QPM, (Reported) Lisinopril (Lisinopril), 5 MG PO DAILY, (Reported) Metformin Hydrochloride (Metformin Hcl), 500 MG PO IBID, (Reported) Metronidazole (Flagyl), 500 MG PO TID Miscellaneous Medications Acetaminophen W/ Codeine (Codeine/Acetaminophen), 2 TAB PO, (Reported) Semaglutide (Ozempic), 8 MG SC, (Reported) Discharge Statement: "Patient was advised to return to the ER or call 911 if any headaches, dizziness, shortness of breath, chest pain, abdominal pain, bleeding, fevers, or worsening of medical condition. Patient was counseled about treatment plan, medications, possible side effects, patientverbalized understanding. All questions were answered to the best of my ability. This discharge took greater then 30 minutes in planning, reviewing documentation, counseling the patient, and discussing with other team members." ASSESSMENT ASSESSMENT Assessment DKA C diff colitis Date of Service: Apr 15, 2025 Billing Provider: TIO JUAREZ MD Common Visit Codes: [id number] DISCH DAY >30min TIO JUAREZ MD Apr 15, 2025 13:12
[2025-04-15 14:31] VITALS: BP 127/64; PULSE 94; RESP 18; TEMP 98.2; O2SAT 98
== END 2025-04-15 16:00 | disposition home or self-care (01) | DRG 420 ==
LOC: ER 00:48 → EDBD 00:48 → OVERFLOW 04:12 → TELE-WESTW 04-13 13:09 → WEST WING 04-14 03:05 → CENTRAL 04-14 21:42
PROVIDERS: ADMIT Hospitalist; ATTEND Hospitalist
DX: E11.10 Type 2 diabetes mellitus with ketoacidosis without coma (principal); A04.72 Enterocolitis due to Clostridium difficile, not specified as recurrent; K85.90 Acute pancreatitis without necrosis or infection, unspecified; I10 Essential (primary) hypertension; E87.6 Hypokalemia; E78.5 Hyperlipidemia, unspecified; Z90.49 Acquired absence of other specified parts of digestive tract; Z82.49 Family history of ischemic heart disease and other diseases of the circulatory system
CPT/HCPCS: 36415; 36600; 74176; 74250; 80048; 80053; 81001; 82010; 82805; 82962; 83605; 83690; 83735; 83930; 84100; 85025; 87493; 96372; 96374; 97163; G0378; J1815; J1885; J2405; J2470; J3480; J3490; Q0162